=== PATIENT | female | born 1960 | race Asian ===

== ENCOUNTER 2021-04-11 17:21 | Emergency (ER) | payer OTHER ==
[~2021-04-11] VITALS: Ht 149.9 cm; Wt 57.7 kg
[2021-04-11 19:00] VITALS: BP 130/73
[2021-04-11] MEDS ORDERED: LENV18CA PO (19:21)
[2021-04-11] MEDS ORDERED: AMLO-257 PO (19:21)
== END 2021-04-11 19:44 | disposition home or self-care (01) ==
LOC: EMS 17:27
DX: I10 Essential (primary) hypertension (principal); B37.0 Candidal stomatitis; L98.9 Disorder of the skin and subcutaneous tissue, unspecified
CPT/HCPCS: 99282; 99283